=== PATIENT | male | born 1990 | race Caucasian/White ===

== ENCOUNTER 2024-01-19 02:55 | Emergency (ER) | payer BC ==
[~2024-01-19] VITALS: Ht 152.4 cm; Wt 83.9 kg
[2024-01-19] MEDS ORDERED: LORAZEPAM 1 MG TABLET ONE (04:06)
[2024-01-19] MEDS: LORAZEPAM 1 MG TABLET PO ONE (04:07)
[2024-01-19 05:52] VITALS: BP 118/86; TEMP 98
== END 2024-01-19 05:53 | disposition home or self-care (01) ==
LOC: ER 02:56
DX: R07.9 Chest pain, unspecified (principal); F41.9 Anxiety disorder, unspecified
CPT/HCPCS: 71045-TC

== ENCOUNTER 2024-01-21 08:56 | Emergency (ER) | payer BC ==
[~2024-01-21] VITALS: Ht 175.3 cm; Wt 83.5 kg
[2024-01-21] MEDS ORDERED: GUAI-671 PO (09:32)
[2024-01-21 09:39] VITALS: BP 117/79; TEMP 98.5; O2SAT 100
== END 2024-01-21 09:40 | disposition home or self-care (01) ==
LOC: ER 09:07
DX: R07.9 Chest pain, unspecified (principal)

== ENCOUNTER 2024-03-01 00:06 | Emergency (ER) | payer BC ==
[~2024-03-01] VITALS: Ht 175.3 cm; Wt 80.7 kg
[~2024-03-01 00:06] MED LIST: GUAI-671 PO
[2024-03-01] MEDS ORDERED: ACETAMINOPHEN 325 MG TABLET ONE (01:22)
[2024-03-01] MEDS ORDERED: ONDANSETRON 4 MG TAB.RAPDIS ONE (01:22)
[2024-03-01] MEDS: ACETAMINOPHEN 325 MG TABLET PO ONE (01:28)
[2024-03-01] MEDS: ONDANSETRON 4 MG TAB.RAPDIS SL ONE (01:30)
[2024-03-01 02:12] LABS: APPEARANCE,URINE CLEAR (CLEAR); BILIRUBIN,URINE NEGATIVE (NEGATIVE); BLOOD, URINE TRACE-INTA Ery/uL (NEGATIVE); COLOR,URINE YELLOW (YELLOW); KETONES,URINE TRACE mg/dL (NEGATIVE); LEUKOCYTE ESTERASE ,URINE NEGATIVE (NEGATIVE); NITRITE, URINE NEGATIVE (NEGATIVE); PROTEIN,URINE NEGATIVE (NEGATIVE); UGLUCOSE NEGATIVE (NEGATIVE)
[2024-03-01 02:33] LABS: ADD URINE CULTURE NO; BACTERIA,URINE None seen /HPF (None Seen); SQUAMOUS EPITHELIAL CELL,UR None Seen /HPF (None Seen); WBC,URINE NONE SEEN /HPF (0-3)
[2024-03-01 03:47] VITALS: BP 108/71; TEMP 98.9; O2SAT 98
== END 2024-03-01 03:48 | disposition home or self-care (01) ==
LOC: ER 00:09
DX: B34.9 Viral infection, unspecified (principal); Z79.899 Other long term (current) drug therapy; Z20.822 Contact with and (suspected) exposure to COVID-19
CPT/HCPCS: 99284; 71045; 87426; 87804 ×2; 81001; Q0162